=== PATIENT | female | born 1990 | race Caucasian/White ===

== ENCOUNTER 2017-07-14 21:39 | Emergency (ER) | payer BC ==
[~2017-07-14] VITALS: Ht 172.7 cm; Wt 115.0 kg
[2017-07-14 22:45] LABS: HEMATOCRIT 36.1 % (37.0-47.0); HEMOGLOBIN 12.1 g/dl (12.0-16.0); IMMATURE GRANULOCYTES 0.3 % (0.0-1.0); MEAN CORPUSCULAR HGB 28.8 pG CALC (26.0-32.0); MEAN CORPUSCULAR HGB CONC 33.5 g/L CALC (32.0-36.0); NEUT# 4.45 thou/uL (2.00-7.15); RED BLOOD COUNT 4.2 mill/uL (4.20-5.60); RED CELL DISTRI WIDTH 13.2 % (11.5-15.5)
[2017-07-14 22:51] LABS: URINE BILIRUBIN - DIPSTICK NEGATIVE (NEGATIVE); URINE BLOOD DIPSTICK NEGATIVE (NEGATIVE); URINE CLARITY CLEAR; URINE COLOR YELLOW; URINE GLUCOSE - DIPSTICK NEGATIVE (NEGATIVE); URINE KETONE NEGATIVE (NEGATIVE); URINE LEUK ESTERASE NEGATIVE (NEGATIVE); URINE NITRITE - DIPSTICK NEGATIVE (Negative); URINE PH 5.5 (4.5-8.0); URINE PROTEIN - DIPSTICK NEGATIVE (NEG-TRACE); URINE SPECIFIC GRAVITY <=1.005; URINE UROBILINOGEN - DIPSTICK 0.2 E.U./dL (0.2)
[2017-07-14 22:53] LABS: BARBITURATES NEGATIVE (NEGATIVE); COCAINE NEGATIVE (NEGATIVE); METHADONE NEGATIVE (NEGATIVE); OXCYCODONE NEGATIVE (NEGATIVE); TETRAHYDROCANNABIONOL NEGATIVE (NEGATIVE); TRICYLIC ANTIDEPRESSANTS NEGATIVE (NEGATIVE)
[2017-07-14 22:58] LABS: ALKALINE PHOSPHATASE 91 u/l (38-126); ANION GAP 16 (6-22 (CALC)); BILIRUBIN, TOTAL 0.4 mg/dL (0.0-1.4); BUN 12 mg/dL (7-17); BUN/CREATININE RATIO 17 (12-20 (CALC)); CARBON DIOXIDE 23 mmol/l (22-30); CHLORIDE 105 mmol/l (95-108); CREATININE 0.7 mg/dL (0.5-1.0); GFR > 60 ML/MIN (>=60 (CALC)); GFR FOR AFR.AMER. > 60 ML/MIN (>=60 (CALC)); SGOT/AST 25 u/l (14-36); SGPT/ALT 37 u/l (9-52); SODIUM 140 mmol/l (137-146)
[2017-07-14 23:01] LABS: ACT PARTIAL THROMBO TIME 25.8 SECONDS (20.0-32.5); INTERNATIONAL NORMALIZED RATIO 0.9 RATIO (0.7-1.3); PROTHROMBIN TIME 10.3 SECONDS (9.0-12.5)
[2017-07-14 23:10] LABS: MYOGLOBIN 23 ng/mL (0 - 62)
[2017-07-15] MEDS ORDERED: PROTONIX40 M2 PO (00:06)
[2017-07-15 01:00] VITALS: BP 102/55
== END 2017-07-15 01:07 | disposition home or self-care (01) | DRG 313 ==
LOC: ED 21:39
PROVIDERS: Emergency Medicine
DX: R07.89 Other chest pain (principal); I10 Essential (primary) hypertension; R00.0 Tachycardia, unspecified; R06.02 Shortness of breath; K21.9 Gastro-esophageal reflux disease without esophagitis

== ENCOUNTER 2017-11-15 17:48 | Emergency (ER) | payer BC ==
[~2017-11-15] VITALS: Ht 172.7 cm; Wt 90.0 kg
[~2017-11-15 17:48] MED LIST: PROTONIX40 M2 PO
[2017-11-15] MEDS ORDERED: IBUPROFEN600 MG PO (18:45)
[2017-11-15] MEDS ORDERED: MEDDOSEPAK PO (18:45)
[2017-11-15 19:02] VITALS: BP 100/71
== END 2017-11-15 19:02 | disposition home or self-care (01) | DRG 558 ==
LOC: ED 17:48
DX: M77.51 Other enthesopathy of right foot and ankle (principal); I10 Essential (primary) hypertension; F90.9 Attention-deficit hyperactivity disorder, unspecified type; K21.9 Gastro-esophageal reflux disease without esophagitis; Z86.711 Personal history of pulmonary embolism

== ENCOUNTER 2018-02-21 19:57 | Emergency (ER) | payer BC ==
[~2018-02-21] VITALS: Ht 172.7 cm; Wt 120.0 kg
[~2018-02-21 19:57] MED LIST changes: +IBUPROFEN600 MG PO; +MEDDOSEPAK PO
[2018-02-21] MEDS ORDERED: OXCARBAZEPINE150 MG PO (20:08)
[2018-02-21] MEDS ORDERED: VYVANSE60 M1 PO (20:08)
[2018-02-21] MEDS ORDERED: TOPIRAMATE50 MG PO (20:09)
[2018-02-21] MEDS ORDERED: METFORMIN500 MG PO (20:10)
[2018-02-21] MEDS ORDERED: METOPROL TAR25 MG PO (20:10)
[2018-02-21] MEDS ORDERED: ZESTRIL10 M1 PO (20:11)
[2018-02-21] MEDS ORDERED: IBUPROFEN600 MG PO (20:11)
[2018-02-21 21:46] LABS: HEMATOCRIT 38.4 % (37.0-47.0); HEMOGLOBIN 12.7 g/dl (12.0-16.0); IMMATURE GRANULOCYTES 0.3 % (0.0-5.0); MEAN CORPUSCULAR HGB 28.1 pG CALC (26.0-32.0); MEAN CORPUSCULAR HGB CONC 33.1 g/L CALC (32.0-36.0); NEUT# 5.72 thou/uL (2.00-7.15); RED BLOOD COUNT 4.52 mill/uL (4.20-5.60); RED CELL DISTRI WIDTH 13.8 % (11.5-15.5)
[2018-02-21 21:48] LABS: URINE BILIRUBIN - DIPSTICK NEGATIVE (NEGATIVE); URINE BLOOD DIPSTICK NEGATIVE (NEGATIVE); URINE COLOR YELLOW; URINE GLUCOSE - DIPSTICK NEGATIVE (NEGATIVE); URINE KETONE NEGATIVE (NEGATIVE); URINE LEUK ESTERASE NEGATIVE (NEGATIVE); URINE NITRITE - DIPSTICK NEGATIVE (Negative); URINE PH 6.5 (4.5-8.0); URINE PROTEIN - DIPSTICK NEGATIVE (NEG-TRACE); URINE SPECIFIC GRAVITY 1.015; URINE UROBILINOGEN - DIPSTICK 0.2 E.U./dL (0.2)
[2018-02-21 22:03] LABS: ALBUMIN 4.1 g/dL (3.2-5.0); ALKALINE PHOSPHATASE 92 u/l (38-126); ANION GAP 14 (6-22 (CALC)); BILIRUBIN, TOTAL 0.3 mg/dL (0.0-1.4); BUN 12 mg/dL (7-17); BUN/CREATININE RATIO 15 (12-20 (CALC)); CARBON DIOXIDE 24 mmol/l (22-30); CHLORIDE 106 mmol/l (95-108); CREATININE 0.8 mg/dL (0.5-1.0); GFR > 60 ML/MIN (>=60 (CALC)); GFR FOR AFR.AMER. > 60 ML/MIN (>=60 (CALC)); LIPASE 123 u/l (23-300); POTASSIUM 4.1 mmol/l (3.5-5.1); SGOT/AST 18 u/l (14-36); SODIUM 140 mmol/l (137-146); TOTAL PROTEIN 7.3 g/dL (6.3-8.2)
[2018-02-21 22:07] LABS: URINE CLARITY CLEAR
[2018-02-21] MEDS ORDERED: PREVACID30 M3 PO (23:37)
[2018-02-22] VITALS: BP 116/68
== END 2018-02-22 03:23 | disposition home or self-care (01) | DRG 379 ==
LOC: ED 19:57
DX: K92.1 Melena (principal); K21.9 Gastro-esophageal reflux disease without esophagitis; K29.70 Gastritis, unspecified, without bleeding
CPT/HCPCS: Q9967

== ENCOUNTER 2018-03-02 16:14 | Emergency (ER) | payer BC ==
[~2018-03-02] VITALS: Ht 172.7 cm; Wt 120.5 kg
[~2018-03-02 16:14] MED LIST changes: +METFORMIN500 MG PO; +METOPROL TAR25 MG PO; +OXCARBAZEPINE150 MG PO; +PREVACID30 M3 PO; +TOPIRAMATE50 MG PO; +VYVANSE60 M1 PO; +ZESTRIL10 M1 PO
[2018-03-02 17:48] LABS: HEMATOCRIT 36.9 % (37.0-47.0); HEMOGLOBIN 11.8 g/dl (12.0-16.0); IMMATURE GRANULOCYTES 0.3 % (0.0-5.0); MEAN CELL VOLUME 87.4 fL CALC (80.0-100.0); NEUT# 6.43 thou/uL (2.00-7.15); RED BLOOD COUNT 4.22 mill/uL (4.20-5.60); RED CELL DISTRI WIDTH 13.8 % (11.5-15.5)
[2018-03-02 17:49] LABS: URINE BILIRUBIN - DIPSTICK NEGATIVE (NEGATIVE); URINE BLOOD DIPSTICK NEGATIVE (NEGATIVE); URINE COLOR YELLOW; URINE GLUCOSE - DIPSTICK NEGATIVE (NEGATIVE); URINE KETONE NEGATIVE (NEGATIVE); URINE LEUK ESTERASE NEGATIVE (NEGATIVE); URINE NITRITE - DIPSTICK NEGATIVE (Negative); URINE PH 6.5 (4.5-8.0); URINE PROTEIN - DIPSTICK NEGATIVE (NEG-TRACE); URINE UROBILINOGEN - DIPSTICK 0.2 E.U./dL (0.2)
[2018-03-02 17:50] LABS: URINE CLARITY CLEAR
[2018-03-02 17:54] LABS: BARBITURATES NEGATIVE (NEGATIVE); COCAINE NEGATIVE (NEGATIVE); METHADONE NEGATIVE (NEGATIVE); OXCYCODONE NEGATIVE (NEGATIVE); TETRAHYDROCANNABIONOL NEGATIVE (NEGATIVE); TRICYLIC ANTIDEPRESSANTS NEGATIVE (NEGATIVE)
[2018-03-02 18:07] LABS: ALBUMIN 3.9 g/dL (3.2-5.0); ALKALINE PHOSPHATASE 82 u/l (38-126); ANION GAP 11 (6-22 (CALC)); BILIRUBIN, TOTAL 0.2 mg/dL (0.0-1.4); BUN 10 mg/dL (7-17); BUN/CREATININE RATIO 12 (12-20 (CALC)); CARBON DIOXIDE 30 mmol/l (22-30); CHLORIDE 105 mmol/l (95-108); CREATININE 0.8 mg/dL (0.5-1.0); GFR > 60 ML/MIN (>=60 (CALC)); GFR FOR AFR.AMER. > 60 ML/MIN (>=60 (CALC)); POTASSIUM 4.3 mmol/l (3.5-5.1); SGOT/AST 17 u/l (14-36); SODIUM 141 mmol/l (137-146); TOTAL PROTEIN 7.2 g/dL (6.3-8.2)
[2018-03-02 18:37] LABS: TSH, 3RD GENERATION 1.37 uIU/mL (0.47 - 4.68)
[2018-03-02] MEDS ORDERED: ANTIVERT PO (18:40)
[2018-03-02] MEDS ORDERED: ZOFRAN ODT4 MG PO (18:40)
[2018-03-02] MEDS ORDERED: BENADRYL 50MG C50 MG PO (18:40)
[2018-03-02] MEDS ORDERED: CEPHALEXIN500 M1 PO (18:50)
[2018-03-02 19:00] VITALS: BP 101/58
== END 2018-03-02 19:00 | disposition home or self-care (01) | DRG 149 ==
LOC: ED 16:14
PROVIDERS: Emergency Medicine
DX: R42 Dizziness and giddiness (principal); J00 Acute nasopharyngitis [common cold]; I10 Essential (primary) hypertension; F90.9 Attention-deficit hyperactivity disorder, unspecified type; K21.9 Gastro-esophageal reflux disease without esophagitis; F41.9 Anxiety disorder, unspecified; F31.9 Bipolar disorder, unspecified; E11.9 Type 2 diabetes mellitus without complications

== ENCOUNTER 2018-05-09 08:34 | Emergency (ER) | payer BC ==
[~2018-05-09] VITALS: Ht 172.7 cm; Wt 117.3 kg
[~2018-05-09 08:34] MED LIST changes: +ANTIVERT PO; +BENADRYL 50MG C50 MG PO; +CEPHALEXIN500 M1 PO; +ZOFRAN ODT4 MG PO
[2018-05-09] MEDS ORDERED: CITALOPRAM20 MG PO (08:49)
[2018-05-09] MEDS ORDERED: PROVENTIL108 MCG/AC IN (09:06)
[2018-05-09] MEDS ORDERED: AUGMENTIN500TAB PO (09:06)
[2018-05-09 09:11] VITALS: BP 118/77
== END 2018-05-09 09:16 | disposition home or self-care (01) | DRG 153 ==
LOC: ED 08:34
DX: J32.1 Chronic frontal sinusitis (principal); J32.0 Chronic maxillary sinusitis; R51 Headache; R09.81 Nasal congestion; R09.89 Other specified symptoms and signs involving the circulatory and respiratory systems; I10 Essential (primary) hypertension

== ENCOUNTER 2018-07-10 21:47 | Emergency (ER) | payer BC ==
[~2018-07-10] VITALS: Ht 172.7 cm; Wt 121.0 kg
[~2018-07-10 21:47] MED LIST changes: +AUGMENTIN500TAB PO; +CITALOPRAM20 MG PO; +PROVENTIL108 MCG/AC IN
[2018-07-10 23:07] LABS: URINE BLOOD DIPSTICK LARGE (NEGATIVE); URINE COLOR YELLOW; URINE GLUCOSE - DIPSTICK NEGATIVE (NEGATIVE); URINE KETONE TRACE mg/dL (NEGATIVE); URINE LEUK ESTERASE NEGATIVE (NEGATIVE); URINE NITRITE - DIPSTICK NEGATIVE (Negative); URINE PROTEIN - DIPSTICK TRACE mg/dL (NEG-TRACE); URINE SPECIFIC GRAVITY >=1.030; URINE UROBILINOGEN - DIPSTICK 0.2 E.U./dL (0.2)
[2018-07-10 23:07] LABS: HEMATOCRIT 37.4 % (37.0-47.0); HEMOGLOBIN 12.2 g/dl (12.0-16.0); IMMATURE GRANULOCYTES 0.3 % (0.0-5.0); MEAN CELL VOLUME 87.2 fL CALC (80.0-100.0); MEAN CORPUSCULAR HGB 28.4 pG CALC (26.0-32.0); MEAN CORPUSCULAR HGB CONC 32.6 g/L CALC (32.0-36.0); NEUT# 5.93 thou/uL (2.00-7.15); RED BLOOD COUNT 4.29 mill/uL (4.20-5.60); RED CELL DISTRI WIDTH 13.3 % (11.5-15.5)
[2018-07-10 23:09] LABS: URINE BILIRUBIN - DIPSTICK NEGATIVE (NEGATIVE)
[2018-07-10 23:10] LABS: URINE MUCUS FEW hpf (NONE-FEW); URINE RBC 50-100 RBC/hpf (0-5); URINE SQUAMOUS EPITHELIAL CELL FEW EPI/hpf (0-FEW)
[2018-07-10 23:13] LABS: BARBITURATES NEGATIVE (NEGATIVE); COCAINE NEGATIVE (NEGATIVE); METHADONE NEGATIVE (NEGATIVE); OXCYCODONE NEGATIVE (NEGATIVE); TETRAHYDROCANNABIONOL POSITIVE (NEGATIVE); TRICYLIC ANTIDEPRESSANTS NEGATIVE (NEGATIVE)
[2018-07-10 23:28] LABS: ALBUMIN 4.1 g/dL (3.2-5.0); ALKALINE PHOSPHATASE 87 u/l (38-126); ANION GAP 15 (6-22 (CALC)); BILIRUBIN, TOTAL 0.3 mg/dL (0.0-1.4); BUN 8 mg/dL (7-17); BUN/CREATININE RATIO 10 (12-20 (CALC)); CARBON DIOXIDE 25 mmol/l (22-30); CHLORIDE 103 mmol/l (95-108); CREATININE 0.8 mg/dL (0.5-1.0); GFR > 60 ML/MIN (>=60 (CALC)); GFR FOR AFR.AMER. > 60 ML/MIN (>=60 (CALC)); POTASSIUM 3.8 mmol/l (3.5-5.1); SGOT/AST 41 u/l (14-36); SODIUM 140 mmol/l (137-146); TOTAL PROTEIN 7.2 g/dL (6.3-8.2)
[2018-07-10 23:39] LABS: MYOGLOBIN 77 ng/mL (0 - 62)
[2018-07-11 02:30] VITALS: BP 104/68
== END 2018-07-11 02:30 | disposition home or self-care (01) | DRG 149 ==
LOC: ED 21:47
PROVIDERS: Emergency Medicine
DX: R42 Dizziness and giddiness (principal); F41.9 Anxiety disorder, unspecified; R51 Headache; R11.0 Nausea; F17.210 Nicotine dependence, cigarettes, uncomplicated; F15.90 Other stimulant use, unspecified, uncomplicated